=== PATIENT | female | born 1945 | race Caucasian/White ===

== ENCOUNTER → 2016-06-02 | Day surgery (SDC) | payer OTHER ==
[2016-05-30 11:49] VITALS: BMI 29.0
[~2016-06-02] VITALS: Ht 162.6 cm; Wt 78.6 kg
[~2016-06-02] MED LIST: ASPI325T39 PO; ATEN50TA8 PO; CALC-51 PO; COEN100C7 PO; ENAL10TA88 PO; GLC/500 PO; GLIM4TAB2 PO; LIDOCAINE HCL 2% 2 ML VIAL (20MG/ML) ONE; MULT-506 PO; NTRGSL/4 UT; PROPOFOL IV EMULSION 10 MG/ML 20 ML VIAL IV ONE; SIMV-151 PO; SODIUM CHLORIDE 0.9% 500ML 500 ML IV ONE
[2016-06-02 10:51] VITALS: Ht 162.6 cm; Wt 78.6 kg
[2016-06-02 10:58] VITALS: TEMP 36.3
--- NOTE | 2016-06-02 11:18 | Endo History and Physical ---
History & Physical Date of Service: Jun 02, 2016. Chief Complaint: 10 year follow up Referring Physician: DR MADRIGAL History of Present Illness screening colo Past Surgical History Hx Cardiac Surgery: No Hx Internal Defibrillator: No Hx Pacemaker: No Hx Abdominal Surgery: Yes (RODOLFO, SAL) Hx of Implantable Prosthesis: No Hx Post-Op Nausea and Vomiting: No Hx Cancer Surgery: No Hx Thoracic Surgery: No Hx Orthopedic: No Hx Urinary Tract Surgery: Yes (BLADDER TACK) Family History None Social History Smoking Status: Never Smoker Hx Substance Use: No Hx Alcohol Use: No Allergies Coded Allergies: No Known Allergies (Verified , 06/02/16) Current Medications Reported Home Medications Medications Dose Route/Sig Max Daily Dose Days Date Category Nitrostat (Nitroglycerin) 0.4 Mg Tab 0.4 Mg UT PRN 05/30/16 Reported Simvastatin 20 Mg Tab 1 Tab PO QPM 05/30/16 Reported Multivitamin (Multivitamins) Tab 1 Tab PO QAM 05/30/16 Reported Glucophage (Metformin Hcl) 500 Mg Tab 1,000 Mg PO BID 05/30/16 Reported Glimepiride 4 Mg Tab 1 Tab PO BID 90 05/30/16 Reported [Calcium] 1 Tab PO QAM 05/30/16 Reported Vasotec (Enalapril Maleate) 10 Mg Tab 10 Mg PO QAM 05/30/16 Reported Coq10 (Coenzyme Q10 (Ubidecarenone)) 100 Mg Cap 1 Cap PO QAM 05/30/16 Reported Tenormin (Atenolol) 50 Mg Tab 50 Mg PO QPM 05/30/16 Reported Aspirin Ec (Aspirin) 325 Mg Tab 325 Mg PO QAM 05/30/16 Reported Vital Signs Weight (Kilograms): 78.64 Height (Feet): 5 Height (Inches): 4 Date Time Temp Pulse Resp B/P Pulse Ox O2 Delivery O2 Flow Rate FiO2 06/02/16 10:58 36.3 69 20 161/90 95 Room Air Physical Exam General Appearance: no apparent distress Respiratory/Chest: Auscultation: breath sounds normal Cardiovascular: Heart Auscultation: RRR Abdomen: Inspection & Palpation: soft Liver: non-tender Assessment and Plan stable for colonoscopy
--- NOTE | 2016-06-02 11:41 | Discharge Instructions ---
Endoscopy Patient Instructions Date / Procedure(s) Performed Jun 02, 2016. Colonoscopy Allergy Information Coded Allergies: No Known Allergies (Verified , 06/02/16) Discharge Date / Findings Jun 02, 2016. diverticulosis otherwise normal colonoscopy Medication Instructions Stopped Medication(s): metformin Provider Instructions Activity Restrictions - No exercising or heavy lifting for 24 hours. - Do not drink alcohol the day of the procedure. - Do not drive a car or operate machinery until the day after the procedure. - Do not make any important decisions or sign important papers in 24 hours after the procedure. Following Day: - Return to full activity which may include returning to work/school. Diet Start your diet with liquids and light foods (jello, soup, juice, toast). Then eat your usual diet if not nauseated. Treatment For Common After Affects For mild abdominal pain, bloating, or excessive gas: - Rest - Eat lightly - Lie on right side Follow-Up Information Follow-up with DR MADRIGAL as scheduled Anesthesia Information What You Should Know You have had a procedure that required some medicine to reduce anxiety and discomfort. This treatment is called moderate sedation. After receiving the treatment, you may be sleepy, but you will be able to breathe on your own. The effects of the treatment may last for several hours. Follow these instructions along with Activity/Diet recommendations noted above: * Do NOT do anything where dizziness or clumsiness would be dangerous. * Rest quietly at home today, then you can be up and about tomorrow. * Have a responsible person stay with you the rest of today. * You may have had an I.V. today. If so, you may take the dressing off later today. Recommendations Call your doctor if: * Trouble breathing * Continuous vomiting for more than 24 hours * Temperature above 101 degrees * Severe abdominal pain or bloating * Pain not relieved by pain medicine ordered * There is increased drainage or redness from any incision * A large amount of rectal bleeding greater than 2-3 tablespoons. (If you had a polyp/s removed or have hemorrhoids, a small amount of blood - from the rectum is to be expected.) * You have any unanswered questions or concerns. IN THE EVENT OF A SERIOUS EMERGENCY, GO TO THE NEAREST EMERGENCY ROOM Your discharge instructions were prepared by provider Shelton Carballo. Patient Instructions Signature Page Mirian Larkin Patient (or Guardian) Signature/Date: I have read and understand the instructions given to me by my caregivers. Caregiver/RN/Doctor Signature/Date: The above-named patient and/or guardian has received patient instructions on this date. + Original Patient Signature Page (only) stays with chart. Please make copy for patient.
--- NOTE | 2016-06-02 11:51 | GI REPORT ---
Procedure Date: 06/02/2016 11:18 AM Procedure: Colonoscopy Indications: Screening for colorectal malignant neoplasm Medicines: See the Anesthesia note for documentation of the administered medications Complications: No immediate complications. Estimated Blood Loss: Estimated blood loss: none. Procedure: Pre-Anesthesia Assessment: - Prior to the procedure, a History and Physical was performed, and patient medications, allergies and sensitivities were reviewed. The patient's tolerance of previous anesthesia was reviewed. - The risks and benefits of the procedure and the sedation options and risks were discussed with the patient. All questions were answered and informed consent was obtained. - Patient identification and proposed procedure were verified prior to the procedure by the physician and the nurse. The procedure was verified in the pre-procedure area. - Pre-procedure physical examination revealed no contraindications to sedation. - After reviewing the risks and benefits, the patient was deemed in satisfactory condition to undergo the procedure. After I obtained informed consent, the scope was passed under direct vision. Throughout the procedure, the patient's blood pressure, pulse, and oxygen saturations were monitored continuously. The scope was introduced through the anus and advanced to the terminal ileum, with identification of the appendiceal orifice and IC valve. The colonoscopy was performed without difficulty. The patient tolerated the procedure well. The quality of the bowel preparation was good. Findings: The perianal and digital rectal examinations were normal. The terminal ileum appeared normal. Many small-mouthed diverticula were found in the sigmoid colon and in the descending colon. The exam was otherwise without abnormality on direct and retroflexion views. Impression: - The examined portion of the ileum was normal. - Diverticulosis in the sigmoid colon and in the descending colon. - The examination was otherwise normal on direct and retroflexion views. - No specimens collected. Recommendation: - Repeat colonoscopy in 10 years for screening purposes. - Discharge patient to home. Shelton Carballo M.D. Shelton Carballo MD 06/02/2016 11:50:44 AM This report has been signed electronically. Note Initiated On: 06/02/2016 11:18 AM I attest to the content of the Intraoperative Record and orders documented therein, exceptions below
[2016-06-02 12:14] VITALS: BP 130/67; PULSE 59; O2SAT 96
--- NOTE | 2016-06-02 13:45 | Anesthesiology Progress Note ---
Anesthesia Post Op Note Date & Time Jun 02, 2016 at 13:44 Vital Signs Pain Intensity: 0 Vital Signs Past 12 Hours Date Time Temp Pulse Resp B/P Pulse Ox O2 Delivery O2 Flow Rate FiO2 06/02/16 12:14 59 20 130/67 96 Room Air 06/02/16 12:00 66 20 113/65 95 Room Air 06/02/16 11:44 62 20 106/53 94 Room Air 06/02/16 10:58 36.3 69 20 161/90 95 Room Air Notes Mental Status: alert / awake / arousable, participated in evaluation Pt Amnestic to Procedure: Yes Nausea / Vomiting: adequately controlled Pain: adequately controlled Airway Patency, RR, SpO2: stable & adequate BP & HR: stable & adequate Hydration State: stable & adequate Anesthetic Complications: no major complications apparent
== END | disposition home or self-care (01) ==
LOC: C.GI 10:46
PROVIDERS: ATTEND Internal Medicine Gastroenterology
DX: Z12.11 Encounter for screening for malignant neoplasm of colon (principal); K57.30 Diverticulosis of large intestine without perforation or abscess without bleeding; Z90.49 Acquired absence of other specified parts of digestive tract; Z90.710 Acquired absence of both cervix and uterus

== ENCOUNTER → 2016-07-28 | Outpatient (CLI) | payer OTHER ==
[~2016-07-28] MED LIST changes: -LIDOCAINE HCL 2% 2 ML VIAL (20MG/ML) ONE; -PROPOFOL IV EMULSION 10 MG/ML 20 ML VIAL IV ONE; -SODIUM CHLORIDE 0.9% 500ML 500 ML IV ONE
[2016-07-28 12:21] LABS: HEMATOCRIT 40.9 % (37-47); MEAN CELL VOLUME 90.7 fL (80-100); MEAN CORPUSCULAR HEMOGLOBIN 30.4 pg (25-34); MEAN CORPUSCULAR HGB CONC 33.5 g/dl (32-36); MEAN PLATELET VOLUME 10.9 fL (7.4-10.4); PLATELET COUNT 253 K/uL (130-400); RED BLOOD COUNT 4.51 M/uL (4.2-5.4); WHITE BLOOD COUNT 7.44 K/uL (4.8-10.8)
[2016-07-28 12:57] LABS: CALCIUM 8.8 mg/dl (8.5-10.1)
[2016-07-28 13:03] LABS: ALT/SGPT 42 U/L (12-78); BLOOD UREA NITROGEN 17 mg/dl (7-18); BUN/CREATININE RATIO 17.8 (10-20); CARBON DIOXIDE 26 mmol/L (21-32); CHLORIDE 105 mmol/L (98-107); CHOLESTEROL 124 mg/dl (0-200); CREATININE 0.93 mg/dl (0.60-1.20); GLUCOSE 153 mg/dl (70-99); POTASSIUM 3.8 mmol/L (3.5-5.1); SODIUM 142 mmol/L (136-145); TRIGLYCERIDES 242 mg/dl (0-150); VERY LOW DENSITY LIPOPROT CALC 48 mg/dl
[2016-07-28 13:13] LABS: ALB/GLOB RATIO 0.9 (0.9-2); ALKALINE PHOSPHATASE 53 U/L (45-117); AST/SGOT 34 U/L (15-37); CHOLESTEROL/HDL RATIO 3.3; HDL CHOLESTEROL 38 mg/dl; LDL CHOLESTEROL CALCULATED 38 mg/dl
[2016-07-28 13:14] LABS: RATIO 6.2 mcg/mg (0-30.0)
[2016-07-28 13:19] LABS: ESTIMATED AVERAGE GLUCOSE 163 mg/dl; HA1C FLAG Normal (Normal)
== END | disposition home or self-care (01) ==
LOC: C.LABBFT 09:28
PROVIDERS: ATTEND Internal Medicine
DX: E11.65 Type 2 diabetes mellitus with hyperglycemia (principal)

== ENCOUNTER → 2016-08-18 | Outpatient (CLI) | payer OTHER ==
--- NOTE | 2016-08-18 13:50 | MAMMOGRAPHY REPORT ---
BILATERAL DIGITAL SCREENING MAMMOGRAM WITH CAD: 08/18/2016 CLINICAL HISTORY: Routine screening. Patient has no complaints. TECHNIQUE: Current study was also evaluated with a Computer Aided Detection (CAD) system. Bilateral CC and MLO views were obtained. COMPARISON: Comparison is made to exams dated: 08/18/2015 mammogram, 08/12/2014 mammogram, 08/09/2013 ma mmogram, 08/03/2011 mammogram, 07/19/2010 mammogram, and 07/14/2009 mammogram - [facility] er. BREAST COMPOSITION: There are scattered areas of fibroglandular density in both breasts. FINDINGS: No suspicious masses, calcifications, or areas of architectural distortion are noted in ei ther breast. There has been no significant interval change compared to prior exams. Scattered bilate ral benign-appearing calcifications are not significantly changed. Nodular asymmetries in the right medial breast middle depth on the CC view are stable compared to prior exams including the 2008 exam. IMPRESSION: ACR BI-RADS CATEGORY 2: BENIGN There is no mammographic evidence of malignancy. A 1 year screening mammogram is recommended. The pa tient will receive written notification of the results. Approximately 10% of breast cancers are not detected with mammography. A negative mammographic report should not delay biopsy if a clinically suggestive mass is present. Mirian Reese M.D. ah/:08/18/2016 10:40:43 Finance Manager: Shira COTO(R)(M), [facility] letter sent: Normal 1/2 BI-RADS Code: ACR BI-RADS Category 2: Benign
== END | disposition home or self-care (01) ==
LOC: C.MAMM 09:06
PROVIDERS: ATTEND Obstetrics & Gynecology
DX: Z12.31 Encounter for screening mammogram for malignant neoplasm of breast (principal)

== ENCOUNTER → 2017-01-30 | Outpatient (CLI) | payer OTHER ==
[2017-01-30 12:43] LABS: ALT/SGPT 56 U/L (12-78); BLOOD UREA NITROGEN 16 mg/dl (7-18); BUN/CREATININE RATIO 17.8 (10-20); CALCIUM 9.2 mg/dl (8.5-10.1); CARBON DIOXIDE 29 mmol/L (21-32); CHLORIDE 103 mmol/L (98-107); CHOLESTEROL 113 mg/dl (0-200); CREATININE 0.91 mg/dl (0.60-1.20); GLUCOSE 164 mg/dl (70-99); POTASSIUM 4.4 mmol/L (3.5-5.1); SODIUM 138 mmol/L (136-145); TRIGLYCERIDES 249 mg/dl (0-150); VERY LOW DENSITY LIPOPROT CALC 50 mg/dl
[2017-01-30 12:50] LABS: ESTIMATED AVERAGE GLUCOSE 177 mg/dl; HA1C FLAG Normal (Normal)
[2017-01-30 12:54] LABS: ALB/GLOB RATIO 0.8 (0.9-2); ALKALINE PHOSPHATASE 55 U/L (45-117); AST/SGOT 43 U/L (15-37); CHOLESTEROL/HDL RATIO 3.4; HDL CHOLESTEROL 33 mg/dl; LDL CHOLESTEROL CALCULATED 30 mg/dl
== END | disposition home or self-care (01) ==
LOC: C.LABBFT 08:19
PROVIDERS: ATTEND Internal Medicine
DX: I10 Essential (primary) hypertension (principal); E78.5 Hyperlipidemia, unspecified; E11.65 Type 2 diabetes mellitus with hyperglycemia

== ENCOUNTER → 2017-02-03 | Outpatient (CLI) | payer OTHER ==
--- NOTE | 2017-02-03 13:55 | DIAGNOSTIC IMAGING REPORT ---
CHEST 2 VIEWS ROUTINE CLINICAL HISTORY: 71 years-old Female presenting with R05 [id number]. TECHNIQUE: PA and lateral views of the chest were obtained. COMPARISON: 01/27/2008. FINDINGS: Cardiomediastinal silhouette normal. Tortuosity of the descending thoracic aorta. Lungs and pleural spaces clear. Degenerative changes of the thoracic spine. Cholecystectomy clips noted. IMPRESSION: 1. No acute cardiopulmonary disease. Electronically signed by: Vaughn Rausch M.D. 02/03/2017 1:54 PM Dictated Date/Time: 02/03/2017 1:53 PM
== END | disposition home or self-care (01) ==
LOC: C.RAD1850 13:44
PROVIDERS: ATTEND Internal Medicine
DX: R05 Cough (principal)

== ENCOUNTER → 2017-06-06 | Outpatient (CLI) | payer OTHER ==
[2017-06-06 12:38] LABS: ALBUMIN 3.5 gm/dl (3.4-5.0); ALT/SGPT 36 U/L (12-78); AST/SGOT 29 U/L (15-37); BLOOD UREA NITROGEN 19 mg/dl (7-18); CALCIUM 8.9 mg/dl (8.5-10.1); CARBON DIOXIDE 29 mmol/L (21-32); CHOLESTEROL 108 mg/dl (0-200); CREATININE 0.94 mg/dl (0.60-1.20); GLUCOSE 163 mg/dl (70-99); POTASSIUM 4.4 mmol/L (3.5-5.1); SODIUM 141 mmol/L (136-145)
[2017-06-06 12:41] LABS: ALKALINE PHOSPHATASE 54 U/L (45-117); HEMOGLOBIN A1C 7.9 % (4.5-5.6); LDL CHOLESTEROL CALCULATED 36 mg/dl; TOTAL PROTEIN 7.2 gm/dl (6.4-8.2)
== END | disposition home or self-care (01) ==
LOC: C.LABBFT 09:49
PROVIDERS: ATTEND Internal Medicine
DX: E11.65 Type 2 diabetes mellitus with hyperglycemia (principal)

== ENCOUNTER 2024-04-19 05:10 | Observation (INO) ==
--- NOTE | 2024-03-19 14:42 | PAT Medication Instructions ---
Medication Instructions Date of Service March 19, 2024 Home Medications Medication Instructions Recorded lancets 33 gauge #100 ea 02/23/23 blood sugar diagnostic (OneTouch #100 strips 07/28/23 Ultra Test strips) simvastatin 20 mg tablet 20 mg PO HS #90 tabs 08/07/23 lancets 33 gauge (Sanna Olmosica #180 ea 09/25/23 Plus Lancet) glipizide 5 mg tablet 5 mg PO BID #180 tabs 10/24/23 dulaglutide 0.75 mg/0.5 mL 0.75 mg (0.5 mL) subcut Q7D #2 mL 11/27/23 subcutaneous pen injector (Trulicity) Jasson Clayton #1 ea 02/09/24 atenolol 50 mg tablet 50 mg PO HS #90 tabs 02/20/24 aspirin 81 mg tablet,delayed release (Jose Low Dose Aspirin) 81 mg PO QAM calcium 600 mg (as carbonate)-vitamin D3 5 mcg (200 unit) capsule (Calcium 600 + D(3)) 1 cap PO QAM coenzyme Q10 10 mg capsule 10 mg PO QAM multivitamin 1 tab PO QAM nitroglycerin 0.4 mg sublingual tablet 0.4 mg sublingual Q5M PRN Chest Pain simvastatin 20 mg tablet 20 mg PO HS glipizide 5 mg tablet 5 mg PO BID dulaglutide 0.75 mg/0.5 mL subcutaneous pen injector (Trulicity) 0.75 mg (0.5 mL) subcut Q7D atenolol 50 mg tablet 50 mg PO HS metformin 500 mg tablet 1,000 mg PO BID olmesartan 5 mg tablet 5 mg PO QAM Continue as directed nitroglycerin 0.4 mg sublingual tablet 0.4 mg sublingual Q5M PRN Chest Pain (if needed) STOP taking 2 weeks before surgery coenzyme Q10 10 mg capsule 10 mg PO QAM STOP taking at least 7 days before surgery dulaglutide 0.75 mg/0.5 mL subcutaneous pen injector (Trulicity) 0.75 mg (0.5 mL) subcut Q7D DO NOT take the morning of surgery calcium 600 mg (as carbonate)-vitamin D3 5 mcg (200 unit) capsule (Calcium 600 + D(3)) 1 cap PO QAM multivitamin 1 tab PO QAM glipizide 5 mg tablet 5 mg PO BID metformin 500 mg tablet 1,000 mg PO BID olmesartan 5 mg tablet 5 mg PO QAM Take morning of surgery With a small sip of water, OTHERWISE NOTHING TO EAT OR DRINK AFTER MIDNIGHT: aspirin 81 mg tablet,delayed release (Jose Low Dose Aspirin) 81 mg PO QAM (unless surgeon directed otherwise) Take evening before surgery simvastatin 20 mg tablet 20 mg PO HS glipizide 5 mg tablet 5 mg PO BID atenolol 50 mg tablet 50 mg PO HS metformin 500 mg tablet 1,000 mg PO BID Other Notes If you have any questions please call us at [phone] or [phone] or [phone] or [phone]
--- NOTE | 2024-03-25 10:20 | Anesthesiology Consultation ---
Date of Service March 25, 2024 Assessment & Plan (1) Encounter for pre-operative examination: - awaiting [facility] clearance response to workload note. - check BSG am DOS. - Patient and surgeon's office made aware of pending medical clearance regarding elevated A1c and abnormal EKG. [place] PCP response: "...Dm2 is managed well for age with Metformin, Trulicity, Glipizide. I wouldn't recommend we tighten control for that currently as risks for hypoglycemic event outweighs benefits of stricter glucose control. She is optimized from this standpoint...does follow with [facility]. Noted that she was stable from cardiovascular standpoint from her visit 01/10/24. Since ECG was after this, with new findings, I would recommend to reach out to them for any recommendations..." Workload note sent to [facility]. - dulaglutide instructions: Patient informed at PAT visit to stop 7 days prior to surgery-voiced understanding. Patient advised to check with prescriber to see if alternative diabetic management changes recommended while holding du laglutide-if so, patient to call back to [facility] to update chart and discuss if any further preop medication instructions needed. - cardiology office visit 01/10/24 [place]: "...stable from a cardiovascular standpoint...excellent control of her blood pressure at home...LDL cholesterol remains well-controlled...HDL cholesterol is borderline. Fortunately, her coronary artery disease remains quiescent on her current medical regimen..." - Outpatient joint assessment: Patient is currently scheduled for inpatient pathway. If re-evaluated and patient/surgeon requests outpatient pathway, patient is not a candidate for outpatient joint program from anesthesia standpoint. Chart Review Chart Review: Pending: Refer to Additional Notes / Consult section and Patient seen in Pre Admission Testing Teaching & Discussion Pre-Anesthesia Teaching/Discussion Notes: Instructed NPO after midnight before surgery, except medications with 15 cc of water. Medication instructions provided according to the PAT guidelines. History Surgery Operation Date: 04/19/24 08:50 Proposed Procedures p Right Total Hip Arthroplasty - Chang Deutsch MD Height/Weight Height: 5 ft 4 in Weight: 75.3 kg Allergies Allergy/AdvReac Type Severity Reaction Status Date / Time No Known Allergies Allergy Unknown Verified 03/15/24 10:13 Medications Home Medications Medication Instructions Recorded Confirmed Last Taken aspirin 81 mg tablet,delayed 81 mg PO QAM 08/25/18 03/15/24 03/29/23 08:00 release (Jose Low Dose Aspirin) calcium 600 mg (as 1 cap PO [facility] 08/25/18 03/15/24 03/29/23 18:00 carbonate)-vitamin D3 5 mcg (200 unit) capsule (Calcium 600 + D(3)) coenzyme Q10 10 mg capsule 10 mg PO QA 08/25/18 03/15/24 03/23/23 multivitamin 1 tab PO [facility] 08/25/18 03/15/24 03/29/23 08:00 lancets 33 gauge #100 ea 02/23/23 01/30/24 Unknown nitroglycerin 0.4 mg sublingual 0.4 mg sublingual Q5M PRN Chest 02/27/23 03/15/24 Unknown tablet Pain blood sugar diagnostic (OneTouch #100 strips 07/28/23 01/30/24 Unknown Ultra Test strips) simvastatin 20 mg tablet 20 mg PO HS #90 tabs 08/07/23 03/15/24 Unknown lancets 33 gauge (OneTouch Delica #180 ea 09/25/23 01/30/24 Unknown Plus Lancet) glipizide 5 mg tablet 5 mg PO BID #180 tabs 10/24/23 03/15/24 Unknown dulaglutide 0.75 mg/0.5 mL 0.75 mg (0.5 mL) subcut Q7D #2 mL 11/27/23 03/15/24 Unknown subcutaneous pen injector (Trulicity) Jasson Clayton #1 ea 02/09/24 02/09/24 Unknown atenolol 50 mg tablet 50 mg PO HS #90 tabs 02/20/24 03/15/24 Unknown metformin 500 mg tablet 1,000 mg PO BID 03/15/24 03/15/24 Unknown olmesartan 5 mg tablet 5 mg PO QAM 03/15/24 03/15/24 Unknown Past Medical History Medical History (Updated 03/25/24 @ 11:57 by Ashley Johnston PA-C) CAD (coronary artery disease) LAD stent, 75% D1 stenosis 2007 Diabetes type 2, controlled NIDDM History of AK (myocardial infarction) (~2007) Hypercholesterolemia Hypertension controlled, stable per pt Patient denies h/o stroke, seizures, heart failure, blood clots/DVTs or blood transfusions. Exercise / Class Metabolic Activity II 4-5 Yardwork/Stairs/Walk up hill (denies chest discomfort or shortness of breath with one flight of stairs, ambulates with cane) Past Family History Family History Brother Family history of CABG Myocardial infarction Mother Family history of CABG Dementia Diabetes Malignant neoplasm of urinary bladder Grandfather (Paternal) Congestive heart failure Father Suicide Other Bipolar disorder Colorectal cancer Coronary heart disease Denies family history of Ovarian cancer Prostate cancer Breast cancer Lung cancer Past Surgical History Surgical History History of arthroscopy of left shoulder Operation Date: 03/30/23 08:35 Actual Procedures p Left Shoulder Arthroscopy, Rotator Cuff Repair, Subacromial Decompression, Biceps Tenodesis(Left) - Ronald Durham MD History of bladder surgery "bladder lift" 2008 History of cardiac cath 2007 > 1 stent, [facility]; f/u dr. river, [place] cardio History of cholecystectomy History of colonoscopy (06/02/16) Dr. Carballo, [facility], normal except for sigmoid diverticulosis, recheck 10 years History of hysterectomy Hx of heart artery stent PCI LAD > 2007 [place] teeth extracted Past Anesthesia History No Hx of Anesthesia Complications and No Family Hx of Anesthesia Complications History of PONV No Hx of PONV and No Hx of Motion Sickness Social History Smoking Status: Never smoker Do You Dip or Chew Tobacco: No Hx Alcohol Use: No Hx Substance Use: No substance use type: does not use Review of Systems Patient denies chest pain, shortness of breath, dyspnea on exertion, snoring, witnessed apneas, reflux, fever, chills, cough, wheezing, or palpitations. Physical Exam Vital Signs Vitals BP 151/76 P 101 (Patient states is usually stressed/anxious in clinical settings) TEMP 97.9 SP02 96% on RA RESP 18 Physical Patient resting comfortably in chair in no acute distress, alert and oriented, responding appropriately throughout visit Full cervical extension range of motion without pain TMD 3 finger breadths Mallampati Score 2 Dentition: intact, denies chipped or loose teeth, caps/crowns, implants or bridges Lungs: normal respiratory effort. Good air movement, clear throughout to auscultation, no adventitious breath sounds Cardiac: regular rate and rhythm, no murmurs noted Carotid arteries: negative bruit bilat Lab Results Anesthesia Preop Results Results Anesthesia Widget: WBC 6.30 K/ul (4.8-10.8) 03/25/24 Hgb 12.3 g/dl (12.0-16.0) 03/25/24 Hct 37.3 % (37.0-47.0) 03/25/24 Plt 261 K/uL (130-400) 03/25/24 Na 139 mmol/L (136-145) 03/25/24 K 3.8 mmol/L (3.5-5.1) 03/25/24 Cl 105 mmol/L (98-107) 03/25/24 CO2 24 mmol/L (21-32) 03/25/24 BUN 23 mg/dl (6-23) 03/25/24 Creat 0.79 mg/dl (0.6-1.2) 03/25/24 Glucose Level 257 mg/dl (70-99(Fasting)) H 03/25/24 PT 10.1 Seconds (9.0-12.0) 03/25/24 PTT 26 Seconds (21-31) 03/25/24 INR 0.9 (0.9-1.1) 03/25/24 HA1c 8.1 % (4.5-5.6) H 03/25/24 Blood Type A Positive 03/25/24 Antibody Screen NEGATIVE 03/25/24 Testing Electrocardiogram Date: 03/25/24 Sinus tachycardia with 1st degree AV block, rate 103 bpm Left axis deviation Possible anterior infarct age undetermined Prolonged QT QT has lengthened vs 03/06/23 EKG Chest X-Ray Date: 03/25/24 No acute cardiopulmonary disease.
--- NOTE | 2024-04-13 07:26 | History & Physical Report ---
Date of Service April 13, 2024 Assessment & Plan (1) Arthritis of right hip: 79-year-old female with multiple medical comorbidities including diabetes, heart disease status post stent placement hypertension, elevated cholesterol with advanced right hip arthritis. She failed conservative measures. She would like to have her right hip fixed. She recently had rotator cuff repair surgery and is done well from this. Her diabetes has been under questionable control but her primary care doctor for feels it is the right place for her to be. Plan: We discussed treatment options. She would like to have her hip fixed. Will proceed with right total hip replacement. Will likely use a cemented implant due to her osteopenia. Her diabetes has been optimized. Awaiting final cardiology clearance but she recently had this rotator cuff surgery without incident. She plan to be discharged to home with some home health he and [facility]. Will use insulin sliding scale coverage for diabetes control. Will use aspirin for DVT prophylaxis. (2) Diabetes type 2, controlled: (3) Hypertension: (4) CAD (coronary artery disease): (5) History of KS (myocardial infarction): History of Present Illness Chief Complaint: . Right hip and leg pain. Primary Care Provider: René Junior DO . The patient is an 79-year-old female from [place] who presents for surgical treatment of her right hip. She has had a several year history of increasing right hip pain discomfort describes gotten worse over time. Got markedly worse over the past 6 to 7 months where she has had to use a cane to get around. Scribes groin pain thigh pain radiating down to her knee. No numbness. No back pain. Of note, she recently had a fairly large rotator cuff repair done by Dr. Etienne and is recovered from this. Allergies Allergy/AdvReac Type Severity Reaction Status Date / Time No Known Allergies Allergy Unknown Verified 03/15/24 10:13 Home Medications Medication Instructions Recorded Confirmed Type aspirin 81 mg tablet,delayed 81 mg PO QAM 08/25/18 03/15/24 History release (Jose Low Dose Aspirin) calcium 600 mg (as 1 cap PO QAM 08/25/18 03/15/24 History carbonate)-vitamin D3 5 mcg (200 unit) capsule (Calcium 600 + D(3)) coenzyme Q10 10 mg capsule 10 mg PO QAM 08/25/18 03/15/24 History multivitamin 1 tab PO QA 08/25/18 03/15/24 History lancets 33 gauge #100 ea 02/23/23 01/30/24 Rx nitroglycerin 0.4 mg sublingual 0.4 mg sublingual Q5M PRN Chest 02/27/23 03/15/24 History tablet Pain blood sugar diagnostic (OneTouch #100 strips 07/28/23 01/30/24 Rx Ultra Test strips) simvastatin 20 mg tablet 20 mg PO HS #90 tabs 08/07/23 03/15/24 Rx lancets 33 gauge (OneTouch Delica #180 ea 09/25/23 01/30/24 Rx Plus Lancet) glipizide 5 mg tablet 5 mg PO BID #180 tabs 10/24/23 03/15/24 Rx dulaglutide 0.75 mg/0.5 mL 0.75 mg (0.5 mL) subcut Q7D #2 mL 11/27/23 03/15/24 Rx subcutaneous pen injector (Trulicity) Wheeled Walker #1 ea 02/09/24 02/09/24 Rx atenolol 50 mg tablet 50 mg PO HS #90 tabs 02/20/24 03/15/24 Rx metformin 500 mg tablet 1,000 mg PO BID 03/15/24 03/15/24 History olmesartan 5 mg tablet 5 mg PO QAM 03/15/24 03/15/24 History Past Med/Surg History Problem List (Updated 04/13/24 @ 07:25 by Chang Deutsch MD) Arthritis of right hip Encounter for pre-operative examination Caregiver burden (Chronic) Hyperglobulinemia Diabetes type 2, controlled NIDDM Hypertension (Chronic) Medical History History of KS (myocardial infarction) (~2007) Diabetes type 2, controlled NIDDM CAD (coronary artery disease) LAD stent, 75% D1 stenosis 2007 Hypercholesterolemia Hypertension controlled, stable per pt Surgical History Hx of heart artery stent PCI LAD > 2007 History of arthroscopy of left shoulder Operation Date: 03/30/23 08:35 Actual Procedures p Left Shoulder Arthroscopy, Rotator Cuff Repair, Subacromial Decompression, Biceps Tenodesis(Left) - Ronald Durham MD History of bladder surgery "bladder lift" 2008 History of cholecystectomy [place] teeth extracted History of cardiac cath 2008 > 1 stent, [facility]; f/u dr. [place] History of colonoscopy (06/02/16) Dr. Carballo, [facility], normal except for sigmoid diverticulosis, recheck 10 years History of hysterectomy Family History Brother Family history of CABG Myocardial infarction Mother Family history of CABG Dementia Diabetes Malignant neoplasm of urinary bladder Grandfather (Paternal) Congestive heart failure Father Suicide Other Bipolar disorder Colorectal cancer Coronary heart disease Denies family history of Ovarian cancer Prostate cancer Breast cancer Lung cancer Social History Smoking Status: Never smoker Second Hand Exposure: Yes (hx, used to smoke); Do You Dip or Chew Tobacco: No; Hx Alcohol Use: No Hx Substance Use: No Preferred Language: Yoruba Communication Ability: Effective 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 Physical Exam . Physical examination reveals a pleasant relatively healthy appearing 79-year-old female. Examination of the right hip and leg reveal patient ambulates with use of a cane but can walk independently. She does limp on the side. The leg lengths appear pretty equal clinically. She has stiffness and pain with any type of hip motion. Internal rotation in neutral. Negative straight leg raise. She is neurologically intact. Constitutional WD/WN, vitals as above Neck trachea midline, no thyromegaly Respiratory normal respiratory effort, lungs clear to auscultation Cardiovascular RRR, no murmur, no edema Gastrointestinal (Abdomen) normal bowel sounds, soft, nontender, no hepatosplenomegaly Results & Data Results & Data Laboratory Results . Diagnostic Findings . X-rays of the right hip were reviewed. Shows advanced right hip arthritis. She got complete loss of the joint space. Some mild to moderate osteoporosis. PG Care Time/CCT Total # of Minutes Spent Total Time Spent with Patient: Total time spent is greater than 50% in coordination of care (as documented) at patient's floor/unit and/or counseling patient: Coding Level of Care Code None Diagnoses Arthritis of right hip M16.11 Diabetes type 2, controlled E11.9 Hypertension I10 CAD (coronary artery disease) I25.10 History of KS (myocardial infarction) I25.2
[2024-04-19] MEDS: LR 60ML/HR IV SCH (05:24)
[2024-04-19] MEDS: ACETAMINOPHEN 500 MG TAB PO SCH ×2 (06:04→11:30)
[2024-04-19] MEDS: LR 500ML BOLUS, THEN 15ML/HR IV SCH (06:04)
[2024-04-19] MEDS: METOCLOPRAMIDE HCL 10 MG TABLET PO SCH (06:05)
[2024-04-19] MEDS: dexAMETHasone**PF** 10 MG/ML VIAL IV SCH (06:05)
[2024-04-19] MEDS: FAMOTIDINE 20 MG TAB PO SCH (06:05)
[2024-04-19] MEDS: CeleBREX 200 MG CAP PO SCH (06:05)
[2024-04-19] MEDS ORDERED: BUPIVACAINE 0.5 % 5 MG/1 ML PF 10ML VIAL ONE (06:26)
[2024-04-19] MEDS ORDERED: fentaNYL citrate PF 100 MCG/2 ML VIAL ONE ×2 (06:42→08:04)
[2024-04-19] MEDS ORDERED: MIDAZOLAM HCL 1 MG/ML 2ML VIAL ONE (06:42)
[2024-04-19] MEDS ORDERED: ATROPINE SULFATE 0.1 MG/ML 10ML SYR IV PRN (06:43)
[2024-04-19] MEDS ORDERED: fentaNYL citrate PF 100 MCG/2 ML VIAL IV PRN (06:43)
[2024-04-19] MEDS ORDERED: ePHEDrine sulfate 50 MG/ML AMP IV PRN (06:43)
[2024-04-19] MEDS ORDERED: ONDANSETRON INJ 2 MG/ML 2 ML VIAL IV PRN ×2 (06:43→10:23)
[2024-04-19] MEDS: TRANEXAMIC ACID 1,000 MG **IV Pre-op IV SCH (06:47)
--- NOTE | 2024-04-19 06:53 | History & Physical Bridge Note ---
Date of Service April 19, 2024 History & Physical Bridge Note I have examined the patient, reviewed the History & Physical and in the interval since the performance of the History & Physical I have noted the following changes of clinical significance: no changes noted
[2024-04-19] MEDS: ceFAZolin 2000MG 2,000 MG/15 ML SYR IV SCH (07:08)
[2024-04-19] MEDS ORDERED: PROPOFOL IV EMULSION 10 MG/ML 20 ML VIAL IV ONE ×2 (07:23→07:56)
[2024-04-19] MEDS ORDERED: ePHEDrine sulfate 50 MG/ML AMP ONE (07:29)
[2024-04-19] MEDS ORDERED: LABETALOL HCL IV 5 MG/ML 20ML IV ONE (08:01)
[2024-04-19] MEDS: BUPIVACAINE/EPINEPHRINE 0.5% MPF 1:200,000 30 ML VIAL ONE (08:10)
[2024-04-19] MEDS ORDERED: hydrALAZINE HCL 20 MG/ML VIAL ONE (08:11)
[2024-04-19] MEDS ORDERED: PHENYLEPHRINE 100MCG/ML 5ML SYR ONE (08:32)
--- NOTE | 2024-04-19 09:07 | Operative Report ---
PG Post Operative Report Pre & Post Diagnosis Operation Date: 04/19/24 07:00 Pre-Op Diagnosis: Right Hip Osteoarthritis Post-Op Diagnosis: Right Hip Osteoarthritis I identified the patient and participated in the time-out.: Yes Procedure Operation Date: 04/19/24 07:00 Actual Procedures p Right Total Hip Arthroplasty, Cemented(Right) - Chang Deutsch MD Surgeon Chang Deutsch MD [employer] Hr[employer] Developer Brooklynn Pimentel PA-C Estimated Blood Loss 100 Findings Consistent with Post-Op Diagnosis Specimens Right femoral head sent for pathology. Anesthesia Type Spinal MAC Complications none Disposition Accompanied Patient To Recovery: No Indications Patient is an 79-year-old female whose had a several year history of increasing right hip pain discomfort described to gotten worse over time. She failed conservative measures. She is actually resorted to using a cane to get around. X-rays show advanced right hip arthritis. She elected proceed with total hip arthroplasty. Description of Procedure Operative implants consist of: 1 Biomet G7 size 54 mm acetabular shell. 2. [place] hole wanigan clerk. 3. 6.5 cancellous acetabular screws 1 of 35 mm length and 1 of 25 mm length. 4. Highly cross-linked polyethylene liner with a 54 mm outer diameter and 36 mm inner diameter. 5. DePuy Diana size 3 high offset cemented femoral stem. 6. +5/36 mm metal articular ball. The patient was taken the operating, identified, placed on the operating table in the supine position. All conductors were appropriately padded. IV antibiotics fibra anesthesia team. A spinal anesthetic and been implemented holding area. A Arriola catheter was placed in sterile fashion. The patient was then placed in the left lateral cubitus position. An axillary roll was placed. A stool Birkett position was used for positioning. The right hip and leg were then prepped and draped in usual sterile fashion. A posterolateral approach to the right hip was then performed to a curvilinear incision centered over the greater trochanter. Sharp dissection was got through subcutaneous tissue dental of the IT band gluteal fascia. The IT band gluteal fascia was sized longitudinally in line with skin incision. The underlying greater bursa was excised. The piriformis and external rotators along with the posterior hip joint capsule then released in the posterior aspect of the hip as a single layer. The hip was internally rotated and dislocated. A femoral neck osteotomy cut was made with a Final Cut about a centimeter above the lesser trochanter. Femoral head was removed and sent for pathology. The femur was retracted anteriorly. Attention then drawn to the acetabulum. The acetabulum labrum was excised. The pulmonary fat was excised. Sequential reaming the acetabular was then performed beginning with size 45 and progressing up to a 53. I then reamed a little bit with a 54 reamer and placed a 54 mm Biomet G7 acetabular shell in about 40 degrees lateral opening and 20 degrees of anteversion. It was fixed with two 6.5 screws. A trial liner was placed. Attention drawn the femur. The proximal femur was entered with a NuMedii cutter followed by canal finder and lateralizing reamer. I then broached beginning the size 1 progressing go to. I could not get anything bigger than 2 in her femur safely. We then trialed the hip and the +5 articular ball with a high offset stem fit appropriately. Their hip was fully stable. Leg lengths seemed equal. Soft tissue tension seemed appropriate. I elected to place his implants. All trial implants were removed. An apex hole wanigan clerk was placed. Highly cross-linked polyethylene liner was placed. A small cement restrictor was placed on the IM canal. The canal canal was then irrigated and dried. A double batch of Palacos G cement was then mixed. I then placed a size 3 high offset Diana femoral stem and into the femur. It was held until the cement hardened. All extraneous cement was removed. The +5/36 mm metal articular ball was pl aced. Hip was located and once again found to be quite stable. Attention then drawn toward closing. The wounds irrigated coconuts of pulsatile lavage solution. I did inject locally with 60 cc of half percent Marcaine with epinephrine. The posterior capsule and external rotators then repaired through drill holes in the posterior trochanter with #2 Tycron suture. The IT band and gluteal fascia then closed in 1 PDS suture in running fashion. The subcutaneous tissue then closed with 2 layers the deep layer #1 Vicryl suture the subcutaneous tissues with 2-0 Dexon suture in a buried interrupted fashion. Skin was closed skin joe. Leg was then cleaned and dried and a sterile dressing with Xeroform, 4 fours, sterile ABD pad and foam tape was applied. The patient then transferred to the recovery room in stable condition. Patient tolerated procedure well and there were no complications. Brooklynn Dunkelberger, my physician assistant chief nursing officer, was present for the entire procedure. Her assistance was required for proper patient positioning, prepping and draping, surgical exposure, retraction, perform the technical details of the operation, placement of the hardware/implants, closure of the incision site and placement of postoperative sterile bandage. I attest to the content of the Intraoperative Record and any orders documented therein. Any exceptions are noted below.
--- NOTE | 2024-04-19 09:19 | XRay Report ---
XR hip 1V RT w pelvis CLINICAL HISTORY: IN PACU - Post Surgical COMPARISON: 12/13/2023 FINDINGS: Right hip prosthesis shows no hardware complication. There is expected soft tissue gas. Sk in joe are present laterally. There are moderate degenerative changes at the left hip. IMPRESSION: Unremarkable postoperative exam. ACT 112: Negative or not required by law. Electronically signed by: Isaac Fagan M.D. 04/19/2024 9:18 AM
--- NOTE | 2024-04-19 10:02 | Anesthesiology Progress Note ---
Date of Service April 19, 2024 Anesthesia Post Procedure Vital Signs Vital Signs: Temp Pulse Pulse Resp BP BP Pulse Ox 04/19/24 09:55 36.3 C L 81 17 130/58 L 94 04/19/24 09:45 82 19 122/98 93 04/19/24 09:35 79 18 132/55 L 93 04/19/24 09:25 78 16 129/58 L 96 04/19/24 09:15 78 22 124/55 L 99 04/19/24 09:05 80 20 120/55 L 97 04/19/24 08:57 36.3 C L 78 13 110/51 L 96 04/19/24 05:39 36.6 C 70 18 171/79 H 96 O2 Del Method O2 Flow Rate 04/19/24 09:55 Room Air 04/19/24 09:45 Room Air 04/19/24 09:35 Room Air 04/19/24 09:25 Room Air 04/19/24 09:15 Oxymask 7 04/19/24 09:05 Oxymask 7 04/19/24 08:57 Oxymask 7 04/19/24 05:39 Room Air Pain Intensity Right Hip: Pain Intensity: 0 Transfer of Care Handoff Completed per policy Notes Mental Status: alert / awake / arousable Patient Amnestic to Procedure: Yes Nausea / Vomiting: adequately controlled Pain: adequately controlled Airway Patency, RR, SpO2: stable & adequate BP & HR: stable & adequate Hydration State: stable & adequate Neuraxial Anesthesia: was administered and sensory block is resolving Anesthetic Complications: no major complications apparent and Pt Satisfied with anesthetic care
[2024-04-19] MEDS ORDERED: METOCLOPRAMIDE HCL INJ 5 MG/ML 2 ML VIAL IV PRN (10:23)
[2024-04-19] MEDS ORDERED: bisacodyL 10 MG SUPP PR PRN (10:23)
[2024-04-19] MEDS ORDERED: NON-FORMULARY MEDICATION (Coenzyme Q10 10 mg Capsule) PO SCH (10:23)
[2024-04-19] MEDS ORDERED: GLUCAGON FOR INJ 1 MG VIAL SQ PRN (10:23)
[2024-04-19] MEDS ORDERED: PHARMACY GLYCEMIC MGMT CONSULT PRN (10:23)
[2024-04-19] MEDS ORDERED: HYDROmorphone INJ 0.5 MG/0.5 ML SYR IV PRN (10:23)
[2024-04-19] MEDS ORDERED: DEXTROSE 50% 50 ML SYRINGE IV PRN (10:23)
[2024-04-19] MEDS ORDERED: SENNA 8.6 MG TAB PO SCH (10:23)
[2024-04-19] MEDS ORDERED: GLUCOSE 10 TAB/TUBE PO PRN (10:23)
[2024-04-19] MEDS ORDERED: GLUCOSE 40% GEL 15 GM TUBE PO PRN (10:23)
[2024-04-19] MEDS ORDERED: NALOXONE HCL 0.4 MG/1 ML VIAL/CARP IV PRN (10:23)
[2024-04-19] MEDS ORDERED: MAGNESIUM HYDROXIDE SUSP 30 ML UDC PO PRN (10:23)
[2024-04-19] MEDS ORDERED: NON-FORMULARY MEDICATION (Multivitamin Tablet) PO SCH (10:23)
[2024-04-19] MEDS ORDERED: NITROGLYCERIN SL 0.4 MG/TAB TAB SL PRN (10:23)
[2024-04-19] MEDS ORDERED: glipiZIDE 5 MG TAB PO SCH (10:23)
[2024-04-19] MEDS ORDERED: CARBOHYDRATES FOR HYPOGLYCEMIA PO PRN (10:23)
[2024-04-19] MEDS ORDERED: ALUMINUM/MAGNESIUM SUSP 30 ML UDC PO PRN (10:23)
[2024-04-19 11:04] VITALS: RESP 16
[2024-04-19] MEDS: ASPIRIN 81 MG ECTAB PO SCH (11:29)
[2024-04-19] MEDS: CALCIUM 600MG + VIT D 400 IU TAB PO SCH (11:29)
[2024-04-19] MEDS: LOSARTAN POTASSIUM 25 MG TAB PO SCH (11:30)
[2024-04-19] MEDS: DOCUSATE SODIUM 100 MG CAP PO SCH (11:30)
[2024-04-19] MEDS: MULTIVITAMIN TAB PO SCH (11:31)
--- NOTE | 2024-04-19 12:21 | Pharmacy Report ---
Pharmacy Glycemic Short Note 2 - Date of Service April 19, 2024 - Glycemic Short BSG Results (Last 24 hours): 04/19/24 04/19/24 04/19/24 05:41 09:01 11:37 POC Glucose 157 H 230 H 211 H OUTPATIENT ANTIDIABETIC REGIMEN: * Trulicity 0.75mg SQ weekly * glipizide 5mg po BID * metformin 1000mg po BID HbA1c: 8.1% on 03/25/24 ASSESSMENT: * 79 year old female admitted for right total hip arthroplasty (POD #0). Consulted was consulted for glycemic management postop. * BSG on arrival was 157mg/dL and post op was 211mg/dL. Patient did receive 10mg iv dexamethasone x 1 preop. * Lantus 15 units SQ x 1 now was ordered and a weight based bolus insulin regimen with a stress of between 2 and 3 was also ordered to start with lunch today. PLAN FOR INPATIENT GLYCEMIC CONTROL: * Hold outpatient diabetes medications * Basal insulin * Lantus 15 units SQ x 1 today. Further need will be assessed with additional BSGs * Bolus insulin * NovoLog per scale ACHS or Q6hrs while NPO * Goal Range: Low 110 mg/dL - High 140 mg/dL * Correction Factor: 25 mg/dL/unit * Nutritional / Prandial insulin per carb ratio of 1 unit per 8 grams CHO consumed
[2024-04-19] MEDS: INSULIN ASPART PER UNIT CHARGE SC SCH (12:29)
[2024-04-19] MEDS: LANTUS PER UNIT CHARGE SC ONE (12:30)
[2024-04-19] MEDS: KETOROLAC TROMETHAMINE 15 MG/ML VIAL IV SCH (12:30)
[2024-04-19] MEDS: TRANEXAMIC ACID / 0.7% NACL 1,000 MG/100 ML BAG IV SCH (15:05)
[2024-04-19] MEDS: ceFAZolin 1000MG 1,000 MG/7.5 ML SYR IV SCH (15:05)
--- OUTSIDE RECORDS SUMMARY | 2024-04-19 15:48 | External Medical Summary | Summary of Care ---
Author Name Unknown Organization [facility] Address [address] [address] Phone [phone] Care Team Providers Care Plate Glass Installer Helper Name Role Phone Magui BENTON MD, Guevara Presley Primary Care Pr ovider Reason for Visit * Reason Onset Date Comments Diabetes Management 05/08/2023 TRIAGE 05/08/2023 Non-CE DM Encounter Details Date Type Department Care Team (Late st Contact Info) Description 05/08/2023 Telephone Pharmacy Call Center [facility] DEPT CLOSED - 09/20/23 [phone] [place] [phone] [place], [facility] [phone] [place] [phone] Diabetes Management; TRIAGE (Non-CE DM) Allergies Active Allergy Reactions Criticality Noted Date Comments No Known Drug Allergy 06/29/2009 documented as of this encounter (statuses as of 04/05/2024) Medications ENALAPRIL MALEATE 10 MG PO TABS once a day Active SIMVASTATIN 20 MG PO TABS once a day Active ATENOLOL 50 MG PO TABS once a day Active ASPIRIN 325 MG PO TABS once a day Active CO Q-10 100 MG PO CAPS once a day Active MULTI-VITAMIN PO TABS None Entered Active CALCIUM 600 MG PO TABS None Entered Active FISH OIL 1200 MG PO CAPS once a day Active METFORMIN HCL 1000 MG PO TABS 2 times daily Active PRILOSEC 40 MG PO CPDR 1 a day as needed Active documented as of this encounter (statuses as of 04/05/2024) Resolved Problems Problem Noted Date Diagnosed Date Resolved Date ADVANCE DIRECTIVE INFORMATION 08/05/2009 12/18/2023 Overview (06/29/2009): Patient states she does not have a living will documented as of this encounter (statuses as of 04/05/2024) Social History Tobacco Use Types Packs/Day Years Used Date Smoking Tobacco: Never Alcohol Use Standard Drinks/Week Comments Yes 0 (1 standard drink = 0.6 oz pur e alcohol) Utilities Answer Date Recorded Do you have trouble paying y our heating, water, or electric bill? (Adult - for ages 18 years and over) Not on file 08/01/2023 Is your family able to pay t he heat, water, or electric bill? (Household - for ages 0-17 years) Not on file 08/01/2023 Does your family have access to good internet? (Household - for ages 0-17 years) Not on file 08/01/2023 Social Connections Answer Date Recorded How often do you feel lonely or isolated from those around you? (Adult - for ages 18 years and over) Not on file 08/01/2023 Comments No Sex and Gender Information Value Date Recorded Sex Assigned at Not on file Legal Sex Female 6:45 AM EST Gender Identity Not on file Sexual Orientation Not on file documented as of this encounter Miscellaneous Notes * Telephone Encounter - Vaughn Mays, [facility] - 04/03/2024 12:56 PM EST [facility] Non-Clinical [place] [facility] THIS NOTE SERVES FOR TRIAGING PURPOSES ONLY AND IS NOT A PATIENT CONTACT. PATIENT MAY BE CONTACTED FOLLOWING MY ASSESSMENT. Patient was identified to be a candidate for the Non-CE telephonic program based on the following criteria: Pharmacy AND/OR Medical High Cost / No A1c Result / PDC >=80% Patient managed by [facility] provider? No; Is Pertinent Diabetes Info in Care Everywhere? No Last A1C: ? (Result Date: ?) Diabetes Diagnosis: Type 2 After chart review the following opportunities were identified: Mail Order Invite, Obtain Updated A1c, and Therapy Optimization (If needed and if no lows can optimize Trulicity) Action to be taken by mammography technician: Please contact and warm transfer to [facility] if patient is agreeable Needs Language Line: No Medication Claims Data (To verify during call): Med: TRULICITY 0.75 Fill date: 02/20/2024 Day Supply: 28 Quantity: 2 || Med: METFORMIN HYDROCHLORIDE 500 Fill date: 01/27/2024 Day Supply: 90 Quantity:360 || Med: GLIPIZIDE 5 Fill date: 02/11/2024 Day Supply: Quantity: 164 Vaughn Mays [facility] Clinical Pharmacist 04/03/2024, 12:56 PM * Telephone Encounter - Yobany Hill [facility] - 05/08/2023 3:10 PM EDT [facility] Non-Clinical [place] [facility] THIS NOTE SERVES FOR TRIAGING PURPOSES ONLY AND IS NOT A PATIENT CONTACT. PATIENT MAY BE CONTACTED FOLLOWING MY ASSESSMENT. Patient was identified to be a candidate for the Non-CE telephonic program based on the following criteria: Pharmacy AND/OR Medical High Cost / No A1c result / PDC >=80% Patient managed by [facility] provider? No; Pertinent Diabetes Info in Care Everywhere No information available Last A1C: Diabetes Diagnosis: Type 2 After chart review the following opportunities were identified: Mail Order Invite ( Call and invite) and Obtain Updated A1c Action to be taken by mammography technician: Please contact and warm transfer to [facility] if patient is agreeable Needs Language Line: No Medication Claims Data (To verify during call): Med: TRULICITY 0.75 Fill date: 03/20/2023 Day Supply: 28 Quantity: 2 || Med: OZEMPIC 2 MG/1.5ML Fill date: 04/18/2022 Day Supply: 84 Quantity: 4.5 || Med: METFORMIN HYDROCHLORIDE 500 MG Fill date: 02/10/2023 Day Supply: 90 Quantity: 360 || Med: GLIPIZIDE 5 Fill date: 02/22/2023 Day Supply: 90 Quantity: [address] [facility] Clinical Pharmacist 05/08/2023, 3:10 PM documented in this encounter Plan of Treatment Scheduled Procedures Name Priority Associated Diagnoses Date/Ti me COLONOSCOPY FLEXIBLE PROXIMAL DIAGNOSTIC Recall Colon cancer screening Health Maintenance Due Date Last Done Comments DXA Scan 1945 Depression Screening 1955 DTap/Tdap Vaccines (1 - Tdap) 1962 Pneumococcal Vaccine: 50+ Years (1 of 1 - PCV) 1993 Zoster Vaccines (1 of 2) 1993 COVID-19 Vaccine ( - 2023-2 5 season) 2023 Influenza Vaccine (FLU shot) (#1) 2023 11/23/2022, 11/24/2021, 11/16/2020 HPV (Gardasil) Vaccine Aged Out No lo nger eligible based on patient's age to complete this topic Hepatitis B Vaccine Aged Out No longe r eligible based on patient's age to complete this topic MENINGOCOCCAL (MENACTRA/MENVEO) Aged Out No longer eligible b ased on patient's age to complete this topic Meningitis B Vaccine (Bexsero/Trumemba) Aged Out No longer eligible b ased on patient's age to complete this topic documented as of this encounter Medical Devices Not on filedocumented as of this encounter Care Teams Plate Glass Installer Helper Relationship Specialty Start Date End Date Guevara Kilgore III, MD PCP - General Internal Medicine 06/02/16 documented as of this encounter"
--- OUTSIDE RECORDS SUMMARY | 2024-04-19 15:48 | External Medical Summary | Summary of Care ---
Author Name Unknown Organization [facility] Address [address] [address] Phone [phone] Care Team Providers Care Mitten Sewer Name Role Phone Magui BENTON MD, Guevara Presley Primary Care Pr ovider Reason for Visit * Reason Onset Date Comments Diabetes Management 05/08/2023 TRIAGE 05/08/2023 Non-CE DM Encounter Details Date Type Department Care Team (Late st Contact Info) Description 05/08/2023 Telephone Pharmacy Call Center [facility] DEPT CLOSED - 09/20/23 [phone] [place] [phone] [place] [address], [facility] [phone] [place] [phone] Diabetes Management; TRIAGE (Non-CE DM) Allergies Active Allergy Reactions Criticality Noted Date Comments No Known Drug Allergy 06/29/2009 documented as of this encounter (statuses as of 04/08/2024) Medications ENALAPRIL MALEATE 10 MG PO TABS [...] as of this encounter (statuses as of 04/08/2024) Resolved Problems Problem Noted Date Diagnosed Date Resolved Date ADVANCE DIRECTIVE INFORMATION 08/05/2009 12/18/2023 Overview (06/29/2009): Patient states she does not have a living will documented as of this encounter (statuses as of 04/08/2024) Social History Tobacco Use Types Packs/Day Years [...] Notes * Telephone Encounter - Vaughn Mays, [facility] - 04/03/2024 12:56 PM EST [facility] Non-Clinical [facility] [facility] THIS NOTE SERVES FOR TRIAGING PURPOSES ONLY AND IS NOT A PATIENT CONTACT. PATIENT MAY BE CONTACTED FOLLOWING MY ASSESSMENT. Patient was identified to be a candidate for the Non-CE telephonic program based on the following criteria: Pharmacy AND/OR Medical High Cost / No A1c Result / PDC >=80% Patient managed by [facility] provider? No; Is Pertinent Diabetes Info in Care Everywhere? No Last A1C: ? (Result Date: ?) Diabetes Diagnosis: Type 2 After chart review the following opportunities were identified: Mail Order Invite, Obtain Updated A1c, and Therapy Optimization (If needed and if no lows can optimize Trulicity) Action to be taken by manufacturing plant technician: Please contact and warm transfer to [facility] if patient is agreeable Needs Language Line: No Medication Claims Data (To verify during call): Med: TRULICITY 0.75 Fill date: 02/20/2024 Day Supply: 28 Quantity: 2 || Med: METFORMIN HYDROCHLORIDE 500 Fill date: 01/27/2024 Day Supply: 90 Quantity:360 || Med: GLIPIZIDE 5 Fill date: 02/11/2024 Day Supply: Quantity: 164 Vaughn Mays [facility] Clinical Pharmacist 04/03/2024, 12:56 PM * Telephone Encounter - Yobany Hill [facility] - 05/08/2023 3:10 PM EDT [facility] Non-Clinical [facility] THIS NOTE SERVES FOR TRIAGING PURPOSES ONLY AND IS NOT A PATIENT CONTACT. PATIENT MAY BE CONTACTED FOLLOWING MY ASSESSMENT. Patient was identified to be a candidate for the Non-CE telephonic program based on the following criteria: Pharmacy AND/OR Medical High Cost / No A1c result / PDC >=80% Patient managed by [facility] provider? No; Pertinent Diabetes Info in Care Everywhere No information available Last A1C: Diabetes Diagnosis: Type 2 After chart review the following opportunities were identified: Mail Order Invite ( Call and invite) and Obtain Updated A1c Action to be taken by manufacturing plant technician: Please contact and warm transfer to [facility] if patient is agreeable Needs [...] Day Supply: 90 Quantity: 180 [place] [place] [facility] Clinical Pharmacist 05/08/2023, 3:10 PM documented in [...] filedocumented as of this encounter Care Teams Mitten Sewer Relationship Specialty Start Date End Date Guevara Kilgore III, MD PCP - General Internal Medicine 06/02/16 documented as of this encounter"
[2024-04-19] MEDS: ASCORBIC ACID 500 MG TAB PO SCH (17:40)
[2024-04-19] MEDS: SENNA 8.6 MG TAB PO SCH (20:26)
[2024-04-19] MEDS: SIMVASTATIN 20 MG TAB PO SCH (20:26)
[2024-04-19] MEDS: ATENOLOL 50 MG TABLET PO SCH (20:26)
[2024-04-20] MEDS: traMADol HCL 50 MG TABLET PO PRN (03:12)
[2024-04-20 06:19] LABS: Basophils # (auto) 0.02 K/uL (0.00-0.20); Basophils % (auto) 0.2 %; Hematocrit (blood only) 29.9 % (37.0-47.0); Hemoglobin 10.1 g/dl (12.0-16.0); Immature Granulocytes # (auto) 0.06 K/uL (0.01-0.20); Immature Granulocytes % (auto) 0.5 %; Lymphocytes # (auto) 1.75 K/uL (1.20-3.40); Lymphocytes % (auto) 14.4 %; Mean Corpuscular Hemoglobin 29.2 pg (25.0-34.0); Mean Corpuscular Hgb Conc 33.8 g/dL (32.0-36.0); Mean Corpuscular Volume 86.4 fL (80.0-100.0); Mean Platelet Volume 10.6 fL (9.4-12.4); Monocytes % (auto) 8.2 %; Neutrophils # (auto) 9.33 K/uL (1.40-6.50); Neutrophils % (auto) 76.7 %; Platelet Count 214 K/uL (130-400); RDW Coefficient of Variation 14.6 % (11.5-14.5); RDW Standard Deviation 45.8 fL (36.4-46.3); Red Blood Count 3.46 M/uL (4.20-5.40); White Blood Count 12.16 K/ul (4.8-10.8)
[2024-04-20 06:36] LABS: BUN Creatinine Ratio 24.4 (10-20); Calcium 8.7 mg/dl (8.6-10.3); Creatinine Clr Calc Pharmacy 48.8 ml/min; Potassium 4.2 mmol/L (3.5-5.1)
[2024-04-20 07:19] VITALS: TEMP 98.1; O2SAT 96
--- NOTE | 2024-04-20 08:01 | Orthopedic Progress Note ---
Date of Service April 20, 2024 Assessment & Plan (1) Status post right hip replacement: Plan: 79-year-old female with multiple medical comorbidities postop day 1 from a hybrid total hip replacement doing pretty well. Pains controlled. Hips located. She is neurologically intact. Plan: 1. DVT prophylaxis including thigh-high teds, SCDs, aspirin twice a day. 2. PT/OT. Weight-bear as tolerated. Right total hip protocol. 3. Pain control. Doing okay with current pain regimen. 4. Disposition. Plan is to discharge to home with some home health if she does okay in therapy today. (2) Diabetes type 2, controlled: (3) Hypertension: (4) History of [place] (myocardial infarction): (5) CAD (coronary artery disease): Admission and Anticipated Discharge Date Admission Date: April 19, 2024 Subjective 79-year-old female postop day 1 from a right hip replacement. She is doing pretty well. Pains controlled. She is neurologically intact. No new complaints. Hoping to go home today. Physical Exam Physical Exam: Physical examination was a pleasant elderly female. She is lying bed looks pretty comfortable. Examination of the hip reveals dressing clean dry and intact. Leg lengths are equal. She can dorsiflex and plantarflex her foot appropriately. She is neurologically intact. Respiratory: normal respiratory effort, lungs clear to auscultation Cardiovascular: RRR, no murmur, no edema Gastrointestinal (Abdomen): normal bowel sounds, soft, nontender, no hepatosplenomegaly Results & Data Vital Signs (Past 12 Hours) Vital Signs Temp Pulse Pulse Resp BP BP Pulse Ox 04/20/24 07:18 36.7 C 69 16 135/55 L 96 04/20/24 03:07 36.4 C L 65 16 127/58 L 93 04/19/24 22:55 36.7 C 78 16 136/64 96 04/19/24 20:00 36.7 C 75 16 131/85 93 O2 Del Method 04/20/24 07:18 Room Air 04/20/24 03:07 Room Air 04/19/24 22:55 Room Air 04/19/24 20:00 Room Air Laboratory Results Hemoglobin 10.1. Hematocrit is 29.9. Electrolytes are stable.
[2024-04-20] MEDS: dexAMETHasone 10 MG in SYRINGE 0 ML IV SCH (08:13)
[2024-04-20 10:09] VITALS: BP 127/58; PULSE 65
== END 2024-04-20 11:28 | disposition home health service (06) ==
LOC: ASU 05:10 → 3E 05:10